=== PATIENT | male | born 1995 | race Caucasian/White ===

== ENCOUNTER 2017-11-03 20:08 | Emergency (ER) | payer BC ==
[~2017-11-03] VITALS: Ht 182.9 cm; Wt 125.0 kg
[2017-11-03] MEDS ORDERED: METH4TAB81 PO (20:32)
[2017-11-03] MEDS ORDERED: ACYC-202 PO (20:32)
[2017-11-03 20:47] VITALS: BP 142/76
== END 2017-11-03 20:50 | disposition home or self-care (01) ==
LOC: ER 20:09
DX: G51.0 Bell's palsy (principal); F41.9 Anxiety disorder, unspecified; F17.200 Nicotine dependence, unspecified, uncomplicated; F12.90 Cannabis use, unspecified, uncomplicated; Z79.899 Other long term (current) drug therapy
CPT/HCPCS: 99283